=== PATIENT | male | born 1960 | race Caucasian/White ===

== ENCOUNTER 2019-05-08 07:30 | Outpatient (CLI) | payer BC ==
[2019-05-08 07:58] LABS: INR-International Normal Ratio 2.1; Prothrombin Time 23.4 SEC (12.0-14.7)
== END 2019-05-08 07:31 | disposition home or self-care (01) ==
LOC: MADLABBHPM 07:30
PROVIDERS: ATTEND Family Medicine
DX: Z51.81 Encounter for therapeutic drug level monitoring (principal); Z79.01 Long term (current) use of anticoagulants
CPT/HCPCS: 36415; 85610